=== PATIENT | male | born 1975 | race Caucasian/White ===

== ENCOUNTER 2021-10-04 09:04 | Outpatient (REF) | payer OTHER, SELFPAY ==
--- NOTE | ~2021-10-04 | XR_ITS ---
EXAMINATION: XR ELBOW, RIGHT XR ELBOW, LEFT CLINICAL INFORMATION: Right elbow pain COMPARISON: None TECHNIQUE: 3 views of each elbow FINDINGS: Right elbow: No fracture or dislocation. Alignment is anatomic. Joint spaces are maintained. Enthesophyte formation at the medial and lateral femoral epicondyles. Enthesophyte formation of the olecranon. No joint effusion. The soft tissues are unremarkable. Left elbow: No fracture or dislocation. Alignment is anatomic. Joint spaces are maintained. No joint effusion. The soft tissues are unremarkable. XR/XR elbow RT 2V IMPRESSION: Normal left elbow. Enthesophyte formation throughout the right elbow as above.
--- NOTE | ~2021-10-04 | XR_ITS ---
EXAMINATION: XR ELBOW, RIGHT XR ELBOW, LEFT CLINICAL INFORMATION: Right elbow pain COMPARISON: None TECHNIQUE: 3 views of each elbow FINDINGS: Right elbow: No fracture or dislocation. Alignment is anatomic. Joint spaces are maintained. Enthesophyte formation at the medial and lateral femoral epicondyles. Enthesophyte formation of the olecranon. No joint effusion. The soft tissues are unremarkable. Left elbow: No fracture or dislocation. Alignment is anatomic. Joint spaces are maintained. No joint effusion. The soft tissues are unremarkable. XR/XR elbow LT 2V IMPRESSION: Normal left elbow. Enthesophyte formation throughout the right elbow as above.
[2021-10-04 10:13] LABS: Alanine Aminotransferase 32 U/L (0-40); Albumin Level 4.3 g/dL (3.5-5.0); Alkaline Phosphatase 66 U/L (39-117); Anion Gap 10 (12-20); Aspartate Amino Transferase 21 U/L (5-37); Bilirubin Total 0.5 mg/dL (0.0-1.0); Blood Urea Nitrogen 17 mg/dL (9-16); Calcium 9.2 mg/dL (8.4-10.2); Carbon Dioxide 30 mmol/L (22-29); Chloride 104 mmol/L (96-108); Cholesterol 170 mg/dL; Estimated Glomerular Filt Rate > 60; Glucose Fasting 96 mg/dL (60-99); HDL Cholesterol 30 mg/dL; LDL Cholesterol Calculated 90 mg/dl; Potassium 4.3 mmol/L (3.3-5.1); Sodium 140 mmol/L (135-145); Total Protein 6.5 g/dL (6.5-8.0); Triglycerides 254 mg/dL
== END 2021-10-04 09:05 | disposition home or self-care (01) ==
LOC: HO.XRAY 09:04
PROVIDERS: PCP Internal Medicine; Visit Provider Internal Medicine
DX: M25.521 Pain in right elbow (principal); M25.522 Pain in left elbow; E66.9 Obesity, unspecified; Z68.37 Body mass index [BMI] 37.0-37.9, adult
CPT/HCPCS: 36415; 73070; 80053; 80061